=== PATIENT | male | born 1935 | race Caucasian/White ===

== ENCOUNTER 2018-01-04 10:34 | Emergency (ER) | payer MEDICARE ==
--- NOTE | 2018-01-04 11:39 | UC ---
Skin Complaint HPI - HPI Summary HPI Summary: abrasion on left brown from a stool yesterday. gate steady no bone c/o - History of Current Complaint Chief Complaint: UCSkin Time Seen by Provider: 01/04/18 11:34 Stated Complaint: SKIN CONCERN Hx Obtained From: Patient Onset/Duration: Sudden Onset, Lasting Days - 1, Still Present Timing: Constant Onset Severity: Mild Current Severity: Mild Pain Intensity: 0 Location: Diffuse - anterior left brown Character: Pain Aggravating Factor(s): Nothing Alleviating Factor(s): Nothing Associated Signs & Symptoms: Positive: Negative - Allergy/Home Medications Allergies/Adverse Reactions: Allergies Allergy/AdvReac Type Severity Reaction Status Date / Time No Known Allergies Allergy Verified 01/04/18 11:29 Home Medications: Home Medications Amlodipine Besylate [Norvasc 2.5 mg tab] 2.5 mg PO DAILY 01/04/18 [History Confirmed 01/04/18] Atorvastatin* [Lipitor*] 40 mg PO 1700 01/04/18 [History Confirmed 01/04/18] Hydrochlorothiazide TAB* [Hydrodiuril TAB*] 25 mg PO DAILY 01/04/18 [History Confirmed 01/04/18] PARoxetine HCL TAB* [Paxil TAB*] 20 mg PO DAILY 01/04/18 [History Confirmed 02/18] Valsartan TAB* [Diovan TAB*] 160 mg PO DAILY 01/04/18 [History Confirmed ] Review of Systems Constitutional: Negative Skin: Negative, Other - Abrasion8 cm 2 cm wide anterior left brown Eyes: Negative ENT: Negative Respiratory: Negative Cardiovascular: Negative Gastrointestinal: Negative Genitourinary: Negative Motor: Negative Neurovascular: Negative Musculoskeletal: Negative Neurological: Negative Psychological: Negative Is Patient Immunocompromised?: No All Other Systems Reviewed And Are Negative: Yes PMH/Surg Hx/FS Hx/Imm Hx Previously Healthy: No Endocrine History: Dyslipidemia Cardiovascular History: Hypertension - Surgical History Surgical History: Yes Surgery Procedure, Year, and Place: CARDIAC CATH. GALLBLADDER - Family History Known Family History: Positive: None - Social History Occupation: Retired Lives: With Family Alcohol Use: None Substance Use Type: None Smoking Status (MU): Never Smoked Tobacco Have You Smoked in the Last Year: No - Immunization History Most Recent Tetanus Shot: up to date Physical Exam Triage Information Reviewed: Yes Appearance: Well-Appearing, No Pain Distress, Well-Nourished Vital Signs: Initial Vital Signs Temp 98.1 F 01/04/18 11:20 Pulse 79 01/04/18 11:20 Resp 14 01/04/18 11:20 BP 125/64 01/04/18 11:20 Pulse Ox 97 01/04/18 11:20 Vital Signs Reviewed: Yes Eye Exam: Normal Eyes: Positive: Conjunctiva Clear ENT Exam: Normal ENT: Positive: Normal ENT inspection, Hearing grossly normal. Negative: Trismus , Muffled voice, Hoarse voice, Dental tenderness Neck exam: Normal Neck: Positive: Supple, Nontender Respiratory Exam: Normal Respiratory: Positive: Chest non-tender, No respiratory distress, No accessory muscle use Cardiovascular Exam: Normal Cardiovascular: Positive: RRR, Pulses Normal, Brisk Capillary Refill Musculoskeletal Exam: Normal Musculoskeletal: Positive: Strength Intact, ROM Intact, No Edema Neurological Exam: Normal Psychological Exam: Normal Skin Exam: Other Skin: Positive: Other - abrasion 8x2 cm anterior brown no bleeding--- Re-Evaluation - Re-Evaluation First Eval Change: Improved - no sutures, suzanne, telfa, michele wrap Course/Dx - Course Course Of Treatment: daily soap and water wash, suzanne, telfa follow with pcp prn - Diagnoses Provider Diagnoses: Abrasion left brown Discharge - Discharge Plan Condition: Stable Disposition: HOME Patient Education Materials: Abrasion (ED), Warm Compress or Soak (ED) Referrals: No Primary Care Phys,NOPCP [Primary Care Provider] - Additional Instructions: Follow with pcp or return as needed
== END 2018-01-04 11:51 | disposition home or self-care (01) ==
LOC: UCCORT 10:34
DX: S80.812A Abrasion, left lower leg, initial encounter (principal); W22.03XA Walked into furniture, initial encounter; Y93.9 Activity, unspecified; Y92.9 Unspecified place or not applicable
CPT/HCPCS: 99202; G0463